=== PATIENT | female | born 1970 | race Caucasian/White ===

== ENCOUNTER 2022-09-22 08:12 | Day surgery (SDC) | payer BC ==
[~2022-09-22 08:12] MED LIST: Epinephrine Preservative Free 1 MG/ML ONE
[2022-09-22] MEDS ORDERED: Versed 2 MG/2 ML Injection IV PRN (08:33)
[2022-09-22] MEDS ORDERED: Reglan 10 MG/2 ML IV ONE (08:33)
[2022-09-22] MEDS ORDERED: Lactated Ringers 1,000 ML IV SCH (09:00)
[2022-09-22] MEDS ORDERED: Pepcid 20 MG VIAL IV SCH (09:00)
[2022-09-22] MEDS ORDERED: CEFAZOLIN 2 GM-D5W BAG** 2 GM/50 ML ML IV SCH (09:00)
[2022-09-22] MEDS ORDERED: Lactated Ringers 1,000 ML IV ONE ×2 (09:01→11:22)
[2022-09-22] MEDS ORDERED: Pepcid 20 MG VIAL IV ONE (09:02)
[2022-09-22] MEDS ORDERED: CEFAZOLIN 2 GM-D5W BAG** 2 GM/50 ML ML IV ONE (09:02)
[2022-09-22] MEDS ORDERED: Reglan 10 MG/2 ML ONE (09:03)
[2022-09-22] MEDS ORDERED: Versed 2 MG/2 ML Injection ONE (09:03)
[2022-09-22] MEDS ORDERED: DEXMEDETOMIDINE 80 MCG/20ML-NS IV ONE (10:15)
[2022-09-22] MEDS ORDERED: Decadron 4 MG INJ ONE ×2 (10:15→10:43)
[2022-09-22] MEDS ORDERED: Marcaine 0.5%/Epinephrine 10 ML ONE (10:15)
[2022-09-22] MEDS ORDERED: Xylocaine-Mpf 2% 5 Ml Vial ONE ×2 (10:19→10:43)
[2022-09-22] MEDS ORDERED: Zofran 4 MG/2 ML VIAL ONE (10:43)
[2022-09-22] MEDS ORDERED: TORAdol 30 mg Injection ONE (10:43)
[2022-09-22] MEDS ORDERED: SUBLIMAZE 100 MCG/2 ML ONE (10:43)
[2022-09-22] MEDS ORDERED: BRIDION 200MG/2ML IV ONE ×2 (10:43→11:36)
[2022-09-22] MEDS ORDERED: Zemuron 100 MG/10 ML ONE ×2 (10:43→10:46)
[2022-09-22] MEDS ORDERED: DIPRIVAN 200 MG/20 ML IV ONE (10:43)
--- NOTE | 2022-09-22 13:27 | OP ---
SURGERY DATE/TIME: 09/22/2022 1043 PREOPERATIVE DIAGNOSES: 1) Left ankle pain. 2) Previous surgery for chronic ankle instability. 3) Ankle joint effusion. 4) Left foot plantar fasciitis. POSTOPERATIVE DIAGNOSES: 1) Left ankle pain. 2) Previous surgery for chronic ankle instability. 3) Ankle joint effusion. 4) Left foot plantar fasciitis. PROCEDURES: 1) Left ankle arthroscopy with synovectomy complete. 2) Left foot in-step plantar fascial release. SURGEON: Alex Stapleton DPM. LENS MOLD SETTER: None. ANESTHESIA: General. HEMOSTASIS: Thigh tourniquet set to 350 mm of Mercury for 6 total tourniquet minutes. ESTIMATED BLOOD LOSS: Less than 1 cc. MATERIALS: 4-0 Monocryl, 3-0 Nylon. INJECTABLES: See anesthesia report for details. INDICATION FOR SURGERY: Jn is a very pleasant 52-year-old female who is well known to my service for treatment for ankle pain as well as plantar fasciitis. The patient had good success with injections to the plantar fascia injection. However, she is seen recurrently for this issue as time has proceeded. At this time the patient has had worsening of her symptoms to the left ankle in the area where she has had a lateral ankle stabilization in the past. Clinical examination demonstrates that she is stable from a clinical perspective in regards to the lateral ankle stabilization being that there is no anterior drawer or talar tilt. However, she does have pain directly over the limb over the anterior talofibular ligament at this time. The patient's clinical examination did appear to be driven through subtalar joint primarily at least initially. However at this time it seems that most of the symptomatology is consistent with lateral gutter ankle pain. At this time the decision was made to proceed with surgical intervention consisting of an ankle arthroscopy with synovectomy, assessment of the lateral ankle stabilization as well as in-step plantar fasciotomy. The patient understands all risks, benefits and complications of surgical intervention including but not limited to infection, hematoma, seroma, possibility of delayed wound healing, nonwound healing, possibility of failure of surgical intervention and need for further surgical intervention at a later date. No guarantees were provided as to the outcome of surgical intervention. It is with that we decided to proceed. DESCRIPTION OF PROCEDURE AND FINDINGS: The patient is brought into the OR and placed on the OR table after a popliteal and adductor canal block was performed and placed under general anesthesia. At this time a well-padded thigh tourniquet was applied to the patient's left lower extremity and lowered onto the surgical field. At this time attention was directed to the anterior aspect of the ankle where skin marker was utilized to vaishali out landmarks at the medial and lateral malleolus as well as at the dell with foot in dorsiflexion of the ankle. Anterior medial and anterior lateral surgical sites were identified based on landmarks and an incision was made at the anterior medial aspect. At this time insufflation was performed utilizing 20 cc of lactated Ringer's. Following this the incision was carried down to the level of the capsule through blunt dissection with a curved mini hemostat and insufflation fluid came from the capsular site. At this time blunt trocar with obturator was introduced and the camera was introduced. Lights were turned off and under lighted guidance a left anterolateral portal was made at the lateral aspect utilizing an 11 blade and carried down to the capsule utilizing a curved mini hemostat. The joint was inspected. A significant amount of synovitis within the ankle joint. At this time, cleaning of the joint was performed utilizing a shaver. As we proceeded the lateral ankle stabilization came into view and did seem to have quite a bit of synovitis surrounding it which was cleaned. The distal extent of the synovitis was identified at the lateral talar gutter. All of the synovitis in this area was cleaned out and pictures were taken of the joint. The arthroscopy equipment was removed from the surgical site. At this time Esmarch was utilized to exsanguinate the leg and the tourniquet was inflated to 350 mm of Mercury. A linear incision approximately 1.56 cm from the palpable dell of the heel was felt and marked out on the medial aspect of the arch. A 15 blade was utilized to make an incision through the skin. The fat was displaced and the plantar fascia was resected approximately one-third [address] way up the medial band and central band making sure not to damage the lateral band of the plantar fascia. At this time copious amounts of sterile saline were utilized to flush the surgical site. 4-0 Monocryl was utilized to coapt the subcutaneous edges of the in-step fasciotomy. At this time 3-0 Nylon was then utilized to coapt the surgical site utilizing horizontal mattress suture on the plantar aspect of the foot and simple interrupted at the portal site. At this time copious amounts of sterile saline were utilized to flush the leg and a dressing consisting of Betadine, Adaptic, 4x4, Kerlix and JAYCOB was applied to the left lower extremity. The patient was returned to the postoperative anesthesia care unit with vital signs stable and vascular status intact. The patient handled the anesthesia as well as the procedure without significant complication. Postoperative orders as indicated in the patient's discharge chart.
[2022-09-22 13:40] VITALS: O2SAT 94
[2022-09-22 13:43] VITALS: BP 120/84; PULSE 86
== END 2022-09-22 13:45 | disposition home or self-care (01) ==
LOC: SDC 08:12
PROVIDERS: ATTEND Podiatrist Foot & Ankle Surgery
DX: M72.2 Plantar fascial fibromatosis (principal); M25.572 Pain in left ankle and joints of left foot; M25.471 Effusion, right ankle; E11.9 Type 2 diabetes mellitus without complications
CPT/HCPCS: 28060; 29898; 64447; 64450; 76937; 76942; 82947; J0171; J0690; J1100; J1885; J2250; J2405; J2704; J3010

== ENCOUNTER 2023-09-23 05:39 | Day surgery (SDC) | payer BC ==
[2023-09-23] MEDS ORDERED: EXPAREL 133 MG/10 ML VIAL IJ ONE (05:40)
[2023-09-23] MEDS ORDERED: Epinephrine Preservative Free 1 MG/ML ONE (06:22)
[2023-09-23 06:28] VITALS: RESP 18
[2023-09-23] MEDS ORDERED: Lactated Ringers 1,000 ML IV SCH (06:30)
[2023-09-23] MEDS ORDERED: CEFAZOLIN 2 GM-D5W BAG** 2 GM/50 ML ML IV SCH (06:30)
[2023-09-23 06:32] LABS: Hematocrit 43.9 % (35-47); Hemoglobin 14.1 g/dL (12.0-16.0); Mean Cell Volume 93.8 fL (78-100); Mean Corpuscular Hemoglobin 30.1 pg (26-32); Mean Corpuscular Hgb Concent. 32.1 g/dL (32-36); Mean Platelet Volume 10.1 fL (7.5-11.0); Platelet Count 326 x10^3/uL (150-450); Red Blood Count 4.68 x10^6/uL (4.1-5.4); White Blood Count 11.8 x10^3/uL (4.0-10.5)
[2023-09-23] MEDS ORDERED: Pre-Attached Lta Kit TP ONE (06:35)
[2023-09-23] MEDS ORDERED: Marcaine Mpf 0.5% Vial 30 Ml ONE (06:35)
[2023-09-23] MEDS ORDERED: OFIRMEV 100 ML IV ONE (06:35)
[2023-09-23] MEDS ORDERED: Decadron 4 MG INJ ONE (06:46)
[2023-09-23] MEDS ORDERED: Xylocaine-Mpf 2% 5 Ml Vial ONE (06:46)
[2023-09-23] MEDS ORDERED: Zofran 4 MG/2 ML VIAL ONE ×2 (06:46→12:59)
[2023-09-23] MEDS ORDERED: DIPRIVAN 200 MG/20 ML IV ONE (06:46)
[2023-09-23] MEDS ORDERED: DEXMEDETOMIDINE 80 MCG/20ML-NS IV ONE (06:46)
[2023-09-23] MEDS ORDERED: Zemuron 100 MG/10 ML ONE (06:46)
[2023-09-23] MEDS ORDERED: Quelicin Fliptop 200 MG/10 ML ONE (06:46)
[2023-09-23] MEDS ORDERED: Versed 2 MG/2 ML Injection ONE (06:47)
[2023-09-23] MEDS ORDERED: SUBLIMAZE 100 MCG/2 ML ONE (06:48)
[2023-09-23 06:50] LABS: ANION GAP 10.4 MEQ/L (5-15); BILIRUBIN,TOTAL 0.5 mg/dL (0.2-1.3); Calcium 8.8 mg/dL (8.4-10.2); Creatinine 1 0.46 mg/dL (0.52-1.04); EST GLOMERULAR FILTRATION RATE 115.8 ML/MIN; Potassium 4.3 mmol/L (3.5-5.1); Total Protein 7.4 g/dL (6.3-8.2)
[2023-09-23 06:52] LABS: INR 0.89 (0.8-3.0); PROTIME 9.8 SECONDS (9.4-12.5); PTT 25.1 SECONDS (25.1-36.5)
[2023-09-23] MEDS ORDERED: Ephedrine Sulfate 50 MG/ML ONE (07:58)
[2023-09-23] MEDS ORDERED: Lactated Ringers 1,000 ML IV ONE (08:05)
[2023-09-23] MEDS ORDERED: REMIFENTANIL HCL IV ONE (09:36)
[2023-09-23] MEDS ORDERED: BRIDION 200MG/2ML IV ONE (10:12)
[2023-09-23] MEDS ORDERED: TORAdol 30 mg Injection ONE (10:24)
--- NOTE | 2023-09-23 10:47 | XRAY ---
Indication: Right ankle arthroplasty with synovectomy Sarah perales peroneal tendon debridement and superior peroneal tendon retinaculum repair. Intraoperative fluoroscopy provided for 1 minute 13 seconds. 14 digital spot images submitted for interpretation demonstrates instrumentation lateral ankle including talus and lateral malleolus. Ultimately there is tunnel radiolucency lateral malleolus with 2 orthopedic tacks. Correlate with intraoperative findings/report.
[2023-09-23 12:35] VITALS: TEMP 97.6
[2023-09-23] MEDS ORDERED: Transderm Scop 1.5MG Patch ONE (12:59)
[2023-09-23] MEDS ORDERED: Zofran 4 MG/2 ML VIAL IV ONE (13:00)
[2023-09-23] MEDS ORDERED: Transderm Scop 1.5MG Patch TOP ONE (13:00)
[2023-09-23 13:11] VITALS: BP 147/83
[2023-09-23 13:16] VITALS: PULSE 90; O2SAT 98
--- NOTE | 2023-09-27 08:48 | OP ---
SURGERY DATE/TIME: 09/23/2023 0811 PREOPERATIVE DIAGNOSES: 1) Ankle synovitis right ankle with osteochondral defect medial talar dome. 2) Pain right ankle. 3) Chronic lateral ankle instability. 4) Peroneus brevis tendon tear. 5) Peroneus longus tenosynovitis. 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 POSTOPERATIVE DIAGNOSES: 1) Ankle synovitis right ankle with osteochondral defect medial talar dome. 2) Pain right ankle. 3) Chronic lateral ankle instability. 4) Peroneus brevis tendon tear. 5) Peroneus longus tenosynovitis. 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 7) Low lying muscle belly peroneus brevis. PROCEDURES: 1) Ankle arthroscopy synovectomy. 2) Ankle arthroscopic debridement arthroscopic microfracture of medial talar dome osteochondral defect. 3) Peroneus brevis tendon repair. 4) Peroneus longus tenosynovectomy. 5) [place] lateral ankle stabilization with Allograft semitendinosus tendon. 6) Repair of superior peroneal retinaculum. SURGEON: Alex Stapleton DPM. DEPUTY SHERIFF K9 HANDLER: None. ANESTHESIA: General plus a preoperative popliteal and saphenous block. See anesthesia report for details. HEMOSTASIS: Thigh tourniquet set to 300 mm of Mercury for 71 total tourniquet minutes. ESTIMATED BLOOD LOSS: [id number] cc. MATERIALS: A 165 x 6 mm semitendinosus tendon Allograft, a 6.12 Quattro [place] with 6 mm semitendinosus to 7.14 Quattro [place] with BroadBand Tape and then two - 1.45 JuggerKnot with MaxBraid, 4-0 Monocryl, 3-0 Nylon. INJECTABLES: See anesthesia report for details. INDICATION FOR SURGERY: Jn is a very pleasant 53-year-old female with long-standing history of pain to the lateral ankle. The patient had a lateral ankle stabilization that resulted in some degree of pain as a result provided by another provider several years ago. The patient had recurrent instability as well as pain to this area. In September of last year, she had an ankle arthroscopy with synovectomy which seemingly alleviated a majority of her pain up until around May of this year where she sought out consult with me once again. As a result new maneuvers were performed demonstrating failure of the repair previously performed at the anterior talofibular ligament with the internal brace and Brostrom procedure as well as significant pain at the at the anterior medial talar dome. As a result, an MRI was obtained demonstrating peroneal tendonitis. A chondral loss at the medial talar dome as well as an ankle joint effusion with clinical instability consisting of a positive anterior drawer and talar tilt. As a result, the decision was made to proceed with surgical intervention after consult and failure of conservative therapy. The patient understands all risks, complications and benefits of surgical intervention at this time including but not limited to infection, hematoma, seroma, possibility of delayed wound healing, nonwound healing and possible failure of surgical outcome and probability of chronic regionalized pain syndrome as a result of nerve pain or chronic pain in other capacities may be present. However, the goal of the procedure is to increase instability and reduce pain. The patient understands this. Plenty of time was allowed for the patient to ask questions which were answered to her apparent satisfaction. It is at this time we decided to proceed with surgical intervention. DESCRIPTION OF PROCEDURE AND FINDINGS: The patient was brought into the OR after having obtained a popliteal and saphenous block to the right lower extremity in the postoperative anesthesia care unit. She was brought into the OR and placed on the OR table in the supine position. At this time, general anesthesia was administered until the patient was adequately sedated. A well-padded thigh tourniquet was applied to the patient's right thigh. The right lower extremity was prepped and draped in the typical sterile fashion. The tourniquet was set to 300 mm of Mercury. At this time, landmarks were identified to the medial and lateral malleolus as well as the palpable dell at the anterior aspect of the ankle joint. At this time, the portals were determined at the anterior medial and anterior lateral aspect of the ankle joint. An 18 gauge needle with lactated Ringers 50 cc syringe was injected into the ankle joint insufflating the ankle joint capsule as well as dorsiflexing the foot. Following this an 11 blade was utilized to make an incision at the anterior medial portal site this was carried down utilizing blunt dissection with a mini-hemostat until insufflation fluid was identified. The blunt obturator was introduced and inspection of the joint took place. At this time a significant amount of free floating synovitis was identified which was cleaned out of the joint after establishing the anterolateral portal. From that standpoint, an 11 blade was utilized to make an incision which was carried down to the level of the ankle joint capsule at the anterolateral aspect utilizing a curved mini-hemostat. At this time the shaver was introduced and synovitis was cleaned from within the joint. It was noted that a majority of the synovitis was nonhemorrhagic. However, there were some areas that demonstrate some hemorrhagic synovitis at the posterior aspect of the joint and the lateral capsule. From this standpoint, the scope and the shaver were traded out from the anteromedial to the anterolateral and vice versa. At this point the delamination on the anterior medial talar dome was identified and there was centrally this was probed and did sink in. At this time the decision was made to proceed with the microfracture portion of the procedure this was carried out utilizing a 30 degree pick which was hammered into the surface until an oil spot was present. Once the shaver was reintroduced and the cartilage was cleansed once again microfracture did take place at an additional position at this time once again showing the oil spot as well as meeting within the joint. From that standpoint, the remaining synovitis was resected and the portals were withdrawn. The camera and the shaver were withdrawn from the portals. At this time, an Esmarch was utilized to exsanguinate the leg and a tourniquet was inflated. At this time attention was directed to the mid portion of the fibula laterally where a linear incision was made curving to the anterior process of the calcaneus in a curvilinear incision. From this standpoint, the superior peroneal retinaculum was run through a range of motion with the foot in eversion and subluxing of the peroneal was identified. The superior peroneal retinaculum was resected and tagged with a 2-0 Vicryl for later identification. From that standpoint, the peroneal tendons were inspected, the peroneus brevis and the superior peroneal retinacular groove. From that standpoint this was debrided and repaired running the ankle through a range of motion. At this point could identify low lying muscle belly on the peroneus brevis which was resected out of the range of where the range of motion was identified. Peroneus longus was inspected and deemed to be intact however with a significant amount of tenosynovitis which was then resected from this site. From that standpoint, the repair of the peroneus brevis tendon took place utilizing 4-0 PDS in an all-inside suture technique. At this time attention was directed to the anterolateral aspect of the talus where drill hole was made 6 mm in size for semitendinosus. Allograft tendon for the [place] portion of the procedure. This was anchored utilizing a whipstitch into the tendon and then anchored into the talus utilizing a 6 x 12 mm Quattro [place]. The leg was picked up off the table identifying that this was secure. A 6 mm drill hole was made through the fibula in the orientation of the anterior talofibular ligament and close to the proximity of the anatomical landmarks for the anterior talofibular ligament. This was passed through this hole in the fibula and routed down the peroneal groove to the lateral wall of the calcaneus. The tendon was pinned and then a whipstitch was placed through the tendon. A drill hole was made 6 mm in size across the calcaneus making sure not to violate the posterior facet and pulling the tendon through under tension with the foot dorsiflexed and everted this was then secured utilizing a 7 x 14 Quattro [place] into the calcaneus. Following this, the ankle was stressed once again and deemed to be in adequate apposition inside the ankle joint mortise with no positive anterior drawer and no talar tilt. Attention was then redirected to the superior peroneal retinaculum which was tagged for later use. Repair took place utilizing two - 1.45 JuggerKnot with MaxBraid into the footprint of the superior peroneal retinaculum angling did have to take place in order to accommodate for previous metal anchors within the anterior talofibular ligament footprint as well as for our tunnel for the [place] portion of the procedure this was secured and the range of motion was tested once again to the peroneal tendons which no longer showed any indicators of subluxation. The groove was also identified to have a significant amount of space for ambulation without impingement. Following this copious amounts of sterile saline were utilized to flush the surgical site. 4-0 and 3-0 Nylon were utilized to coapt the skin utilizing simple interrupted buried-type fashion for the subcu and horizontal mattress for the 3-0 Nylon. Following this a dressing consisting of Betadine, Adaptic, 4x4, Kerlix and a well-padded posterior splint with [place] was applied to the patient's right lower extremity with the foot orthogonal relative to the longitudinal access of the leg. The patient was then reversed from anesthesia and returned to the postoperative anesthesia care unit with vital signs stable and vascular status intact. The patient handled the anesthesia as well as the procedure without significant complication. Postoperative orders as indicated in the patient's discharge chart.
--- NOTE | 2023-09-28 11:58 | XRAY ---
One minute and 13 seconds of fluoroscopy was used in surgery for a right ankle arthroplasty with synovectomy Sarah benderk peroneal tendon debridement and superior peroneal tendon retinaculum repair.
== END 2023-09-23 13:29 | disposition home or self-care (01) ==
LOC: SDC 05:39
PROVIDERS: ATTEND Podiatrist Foot & Ankle Surgery
DX: M65.871 Other synovitis and tenosynovitis, right ankle and foot (principal); M21.961 Unspecified acquired deformity of right lower leg; M25.371 Other instability, right ankle; M25.571 Pain in right ankle and joints of right foot; S96.811A Strain of other specified muscles and tendons at ankle and foot level, right foot, initial encounter; S86.391A Other injury of muscle(s) and tendon(s) of peroneal muscle group at lower leg level, right leg, initial encounter; E11.9 Type 2 diabetes mellitus without complications; I10 Essential (primary) hypertension
CPT/HCPCS: 27658; 27680; 27695; 27698; 29891; 29898; 36415; 73610; 76000; 76937; 80053; 82947; 85027; 85610; 85730; 93005; C1713; C1762; J0171; J0330; J0690; J1100; J1885; J2250; J2405; J2704; J3010; A9270-GY